=== PATIENT | female | born 1950 | race Caucasian/White ===

== ENCOUNTER 2017-08-24 08:19 | Day surgery (SDC) | payer OTHER, MEDICARE ==
[2017-08-21 11:18] LABS: BASOPHILS % (AUTO) 0.7 % (0-1); EOSINOPHILS # (AUTO) 0.2 X10'3 (0-0.9); EOSINOPHILS % (AUTO) 3.4 % (0-6); LYMPHOCYTES # (AUTO) 1.5 X10'3 (1.1-4.8); LYMPHOCYTES % (AUTO) 24.9 % (21-51); MEAN CORPUSCULAR HEMOGLOBIN 29.8 PG (27.0-31.0); MEAN CORPUSCULAR HGB CONC 33.7 % (33.0-36.5); MEAN CORPUSCULAR VOLUME 88.4 FL (78-98); MEAN PLATELET VOLUME 8.6 FL (7.4-10.4); MONOCYTES # (AUTO) 0.3 X10'3 (0-0.9); MONOCYTES % (AUTO) 5.9 % (2-12); NEUTROPHILS # (AUTO) 3.8 X10'3 (1.8-7.7); NEUTROPHILS % (AUTO) 65.1 % (42-75); PRE OP HEMATOCRIT 40.9 % (35.0-45.0); PRE OP HEMOGLOBIN 13.8 g/dL (12.0-16.0); PRE OP PLATELET COUNT 232 X10'3 (140-440); RED BLOOD COUNT 4.63 X10'6 (4.20-5.60); RED CELL DISTRIBUTION WIDTH 13.5 % (11.5-14.5)
[2017-08-21 11:31] LABS: PRE OP PROTIME 10.5 SECONDS (9.0-12.0)
[2017-08-21 11:49] LABS: ALBUMIN 3.7 G/DL (3.4-5.0); ALBUMIN/GLOBULIN RATIO 0.9 (1.1-1.5); ALKALINE PHOSPHATASE 112 IU/L (46-116); BLOOD UREA NITROGEN 14 MG/DL (7-18); BUN/CREATININE RATIO 15.2 (6.6-38.0); CHLORIDE 104 MMOL/L (99-107); CREATININE 0.92 MG/DL (0.40-0.90); PRE OP ALT 22 U/L (30-65); PRE OP ANION GAP 7 (8-16); PRE OP AST 16 U/L (10-37); PRE OP BILIRUB, TOTAL 0.4 MG/DL (0.0-1.0); PRE OP GLUCOSE 78 MG/DL (70-104); PRE OP POTASSIUM 3.9 MMOL/L (3.4-5.1); PRE OP SODIUM 142 MMOL/L (135-145); TOTAL CARBON DIOXIDE 31.2 MMOL/L (24-32); TOTAL PROTEIN 7.8 G/DL (6.4-8.2); eGFR 61 ML/MIN
[~2017-08-24] VITALS: Ht 165.1 cm; Wt 80.0 kg
[2017-08-24] VITALS (9 sets, daily range): BP systolic 143–182; BP diastolic 76–100
[~2017-08-24 08:19] MED LIST: BUPIVACAINE 0.5% IJ ONE; CHOL100046 PO; EPINEPHRINE IJ ONE; HYDR200T84 PO; LEVO100T PO; LIDOCAINE 1% IJ ONE; LIDOcaine 1% (10mg/ml) 2ml vial ONE; SERT25TA PO; famotidine 20mg tablet PO ONE; ringers solution, lacted 1,000 ML IV SCH
[2017-08-24] MEDS ORDERED: mupirocin 2% ointment 22GM ONE (09:16)
[2017-08-24] MEDS ORDERED: cocaine 4% topical solution 4ml bottle ONE (10:24)
[2017-08-24] MEDS ORDERED: oxymetazoline 15 ML nasal spray NS ONE (10:24)
[2017-08-24] MEDS ORDERED: fentaNYL/PF 50MCG/1 ML 2ML syringe ONE (10:29)
[2017-08-24] MEDS ORDERED: cefTAZidime 1gm inj IV ONE (10:30)
[2017-08-24] MEDS ORDERED: midazolam 2 mg/2 ml injection ONE (10:31)
[2017-08-24] MEDS ORDERED: propofol inj 20 ML IV ONE (10:32)
[2017-08-24] MEDS ORDERED: sevoflurane 250ml liquid IH ONE (10:43)
[2017-08-24] MEDS ORDERED: ringers solution, lacted 1,000 ML IV SCH (11:36)
[2017-08-24] MEDS ORDERED: meperidine/PF 25mg/ml syringe IV PRN ×3 (11:40)
[2017-08-24] MEDS ORDERED: ondansetron/PF 4mg/2ml inj IV PRN (11:40)
[2017-08-24] MEDS ORDERED: morphine sulfate 8 MG/ML SYRINGE IV PRN ×2 (11:40)
[2017-08-24] MEDS ORDERED: proCHLORperazine 10 MG/2 ml inj IV PRN (11:40)
[2017-08-24] MEDS ORDERED: dexamethasone sod phosphate 4mg/ml inj. ONE (11:41)
[2017-08-24] MEDS ORDERED: ondansetron/PF 4mg/2ml inj ONE (11:42)
[2017-08-24] MEDS ORDERED: salt irrigation nasal spray 45 ML SPRAY NS PRN (12:30)
[2017-08-24] MEDS ORDERED: oxymetazoline 15 ML nasal spray NS PRN (12:30)
[2017-08-24] MEDS ORDERED: mupirocin 2% ointment 22GM TP SCH (13:00)
== END 2017-08-24 13:30 | disposition home or self-care (01) ==
LOC: PAS 08:19
PROVIDERS: ATTEND Otolaryngology
DX: J32.9 Chronic sinusitis, unspecified (principal); J31.0 Chronic rhinitis
CPT/HCPCS: 31254; 31267; 36415; 80053; 85025; 85610; 85730; 93005; A6449; C9250; J0171; J0713; J1100; J2250; J2270; J2405; J2704; J3010; J3490; J7030; J7120; A7000